=== PATIENT | female | born 1995 ===

== ENCOUNTER 2018-12-30 07:52 | Emergency (ER) | payer OTHER ==
--- NOTE | 2018-12-30 08:22 | ED ---
Dizziness - HPI Summary HPI Summary: This patient is a 23 year old F presenting to ED with a chief complaint of lightheadedness since this morning. Patient woke up this morning feeling lightheaded and then went to the bathroom. After using the bathroom, she stood up and felt more lightheaded. She states she then lost consciousness. She fell to the ground on a bath mat. Patient denies head injury or any other injury. Patient also reports starting her period today with slightly worse abdominal cramps. In the ED room, patient denies feeling lightheaded. Patient reports previously having a fainting spell while getting a vaccine with needles. Patient s last period was four weeks ago. The patient rates the pain 3/10 in severity. Symptoms aggravated by nothing. Symptoms alleviated by nothing. - History Of Current Complaint Chief Complaint: EDDizziness Stated Complaint: PASSED OUT PER PT Time Seen by Provider: 12/30/18 08:05 Hx Obtained From: Patient Onset/Duration: Resolved, Gradually Timing: Constant Severity Initially: Mild Severity Currently: Mild Character: Lightheaded Aggravating Factor(s): Nothing Alleviating Factor(s): Nothing Associated Signs And Symptoms: Positive: Other: - Abdominal cramping - Allergies/Home Medications Allergies/Adverse Reactions: Allergies Allergy/AdvReac Type Severity Reaction Status Date / Time No Known Allergies Allergy Verified 12/30/18 07:57 PMH/Surg Hx/FS Hx/Imm Hx Endocrine/Hematology History: Denies: Hx Diabetes Cardiovascular History: Denies: Hx Hypercholesterolemia, Hx Hypertension Respiratory History: Denies: Hx Asthma, Hx Chronic Obstructive Pulmonary Disease (COPD) - Surgical History Surgery Procedure, Year, and Place: Denies Infectious Disease History: No Infectious Disease History: Denies: Traveled Outside the [place] in Last 30 Days - Family History Known Family History: Negative: Hypertension, Diabetes Family History: Noncontributory - Social History Alcohol Use: Occasionally Hx Substance Use: No Substance Use Type: Reports: None Hx Tobacco Use: No Smoking Status (MU): Never Smoked Tobacco Review of Systems Positive: Abdominal Pain - Cramping Neurological: Other - Lightheaded, LOC All Other Systems Reviewed And Are Negative: Yes Physical Exam - Summary Physical Exam Summary: Appearance: The patient is well-nourished in no acute distress and in no acute pain. Skin: The skin is warm and dry, and skin color reflects adequate perfusion. HEENT: The head is normocephalic and atraumatic. The pupils are equal and reactive. The conjunctivae are clear and without drainage. Nares are patent and without drainage. Mouth reveals moist mucous membranes, and the throat is without erythema and exudate. The external ears are intact. The ear canals are patent and without drainage. The tympanic membranes are intact. Neck: The neck is supple with full range of motion and non-tender. There are no carotid bruits. There is no neck vein distension. Respiratory: Chest is non-tender. Lungs are clear to auscultation and breath sounds are symmetrical and equal. Cardiovascular: Bradycardic. There is no murmur or rub auscultated. There is no peripheral edema and pulses are symmetrical and equal. Abdomen: The abdomen is soft and non-tender. There are normal bowel sounds heard in all four quadrants and there is no organomegaly palpated. Musculoskeletal: There is no back tenderness noted. Extremities are non-tender with full range of motion. There is good capillary refill. There is no peripheral edema or calf tenderness elicited. Neurological: Patient is alert and oriented to person, place and time. The patient has symmetrical motor strength in all four extremities. Cranial nerves are grossly intact. Deep tendon reflexes are symmetrical and equal in all four extremities. Psychiatric: The patient has an appropriate affect and does not exhibit any anxiety or depression. Triage Information Reviewed: Yes Vital Signs On Initial Exam: Initial Vitals Temp Pulse Resp BP Pulse Ox 96 F 70 14 104/67 99 12/30/18 07:53 12/30/18 07:53 12/30/18 07:53 12/30/18 07:53 12/30/18 07:53 Vital Signs Reviewed: Yes Procedures - Sedation Patient Received Moderate/Deep Sedation with Procedure: No Diagnostics - Vital Signs Vital Signs Temp Pulse Resp BP Pulse Ox 12/30/18 08:09 63 116/76 12/30/18 08:07 65 15 116/76 100 12/30/18 08:06 55 19 108/69 100 12/30/18 07:53 96 F 70 14 104/67 99 - Laboratory Result Diagrams: 12/30/18 08:51 12/30/18 08:51 Lab Statement: Any lab studies that have been ordered have been reviewed, and results considered in the medical decision making process. - EKG 0859 Cardiac Rate: Bradycardia - 55 BPM EKG Rhythm: Sinus Bradycardia ST Segment: Normal Ectopy: None Summary of EKG Findings: Sinus bradycardia at 55 BPM, normal ST, no ectopy, no STEMI. Dr. Abbasi has reviewed and interpreted this EKG. Re-Evaluation - Re-Evaluation First Eval Re-Evaluation Time: 10:32 Comment: Discussed results with patient. Patient will be discharged home with dx of vasovagal episode. Patient understands and agrees with this plan. Dizzy Course/Dx - Course Course Of Treatment: Ms. Multani had what sounds like a classic vasovagal episode secondary to period cramping. She was completely improved by the time she arrived here and remained so while we observed her on the monitor and checked labs. - Diagnoses Provider Diagnoses: Vasovagal episode Discharge ED - Sign-Out/Discharge Documenting (check all that apply): Patient Departure - Discharge - Discharge Plan Condition: Stable Disposition: HOME Patient Education Materials: Syncope (ED) Forms: *Work Release Referrals: [facility] [Outside] Additional Instructions: Please follow-up with your primary care physician in 2-3 days. RETURN TO THE ER FOR WORSENING OR CHANGING SYMPTOMS. - Billing Disposition and Condition Condition: STABLE Disposition: Home - Attestation Statements Document Initiated by Scribe: Yes Documenting Scribe: Stuart Mackenzie Provider For Whom José is Documenting (Include Credential): Filemon Abbasi MD Scribe Attestation: Stuart Galindo, scribed for Filemon Abbasi MD on 12/30/18 at 1110. Scribe Documentation Reviewed: Yes Provider Attestation: The documentation as recorded by the Stuart kaplan accurately reflects the service I personally performed and the decisions made by me, Filemon Abbasi MD Status of Scribe Document: Viewed
[2018-12-30 08:59] LABS: ABS Basophils 0.1 10^3/ul (0-0.2); ABS Eosinophils 0.2 10^3/ul (0-0.6); ABS Lymphocytes 1.9 10^3/ul (1.0-4.8); ABS Monocytes 0.5 10^3/ul (0-0.8); Eosinophil % 3.3 %; Hematocrit 40 % (35-47); Hemoglobin 13.5 g/dL (12.0-16.0); Lymphocyte % 33.7 %; Mean Corpuscular HGB Conc 33 g/dL (31-36); Mean Corpuscular Hemoglobin 28 pg (27-31); Mean Corpuscular Volume 85 fL (80-97); Mean Platelet Volume 7.5 fL (7.4-10.4); Nucleated Red Blood Cells % 0.1; Platelet Count 206 10^3/uL (150-450); Red Blood Count 4.75 10^6 /uL (3.70-4.87); Red Cell Distribution Width 13 % (10-15); White Blood Count 5.6 10^3/uL (3.5-10.8)
[2018-12-30 09:16] LABS: ALT 15 U/L (7-52); AST 16 U/L (13-39); Albumin 4.1 g/dL (3.2-5.2); Albumin/Globulin Ratio 1.7 (1-3); Alkaline Phosphatase 46 U/L (34-104); Anion Gap 7 mmol/L (2-11); BUN/Creatinine Ratio 11.8 (8-20); Blood Urea Nitrogen 10 mg/dL (6-24); CO2 Carbon Dioxide 26 mmol/L (22-32); Chloride 109 mmol/L (101-111); EGFR African American 101.2 (>60); EGFR Non-African American 83.6 (>60); Globulin 2.4 g/dL (2-4); Glucose 88 mg/dL (70-100); Magnesium 1.9 mg/dL (1.9-2.7); Sodium 142 mmol/L (135-145); Total Protein 6.5 g/dL (6.4-8.9)
[2018-12-30 09:23] LABS: HCG Pregnancy < 0.60 mIU/mL
[2018-12-30 09:41] LABS: Urine Appearance Cloudy; Urine Bacteria Absent (Absent); Urine Bilirubin Negative (Negative); Urine Blood 3+ (Negative); Urine Color Amber; Urine Glucose Negative (Negative); Urine Ketones Negative (Negative); Urine Nitrite Negative (Negative); Urine Protein 2+(100 mg/dL) (Negative); Urine Red Blood Cell 3+(>10/hpf) (Absent); Urine Specific Gravity 1.023 (1.010-1.030); Urine Squamous Epithelial Cell Present (Absent); Urine Urobilinogen Negative (Negative); Urine White Blood Cell 2+(11-20/hpf) (Absent)
[2018-12-30 09:59] LABS: TSH (Thyroid Stimulating Horm) 2.19 mcIU/mL (0.34-5.60)
[2018-12-30 10:38] VITALS: BP 114/73
== END 2018-12-30 10:37 | disposition home or self-care (01) ==
LOC: ED 07:52
DX: R55 Syncope and collapse (principal)
CPT/HCPCS: 36415; 80053; 81003; 81015; 83605; 83735; 84443; 84484; 84702; 85025; 87086; 93005; 99282